=== PATIENT | female | born 1975 | race African-American/Black ===

== ENCOUNTER 2019-06-19 03:16 | Emergency (ER) | payer BC ==
[~2019-06-19] VITALS: Ht 160 cm; Wt 118.1 kg
[2019-06-19] MEDS ORDERED: LISD30CA2 PO (04:04)
[2019-06-19] MEDS ORDERED: acetaminophen 325mg tablet PO ONE (05:25)
[2019-06-19] MEDS ORDERED: normal saline 1000ML IV soln IVB ONE (05:25)
[2019-06-19] MEDS ORDERED: proCHLORperazine 10 MG/2 ml inj IV ONE (05:25)
[2019-06-19] MEDS ORDERED: ketorolac trometh. 30mg/ml inj. IV ONE (05:25)
[2019-06-19] MEDS ORDERED: magnesium 2GM in 50ml NS 50 ML IV ONE (06:30)
[2019-06-19 08:07] VITALS: BP 128/77
== END 2019-06-19 08:08 | disposition home or self-care (01) ==
LOC: ER 03:18
DX: R51 Headache (principal); R11.0 Nausea; Z88.8 Allergy status to other drugs, medicaments and biological substances; Z79.899 Other long term (current) drug therapy
CPT/HCPCS: 96365; 96375; 99283; J0780; J1885; J3475; J7030

== ENCOUNTER 2022-06-16 10:32 | Emergency (ER) | payer BC ==
[~2022-06-16] VITALS: Ht 160 cm; Wt 113.6 kg
[~2022-06-16 10:32] MED LIST: LISD30CA2 PO
[2022-06-16 10:43] VITALS: BP 143/80
[2022-06-16] MEDS ORDERED: fluorescein sod 1mg ophthalmic strip RIGHTEYE ONE (11:10)
[2022-06-16] MEDS ORDERED: proparacaine 0.5% ophthalmic drops 15ml EACHEYE ONE (11:10)
[2022-06-16] MEDS ORDERED: fluorescein sod 1mg ophthalmic strip LEFTEYE ONE (11:10)
[2022-06-16] MEDS ORDERED: ofloxacin 0.33% 5ml ophthalmic drops EACHEYE STA (12:15)
== END 2022-06-16 12:37 | disposition home or self-care (01) ==
LOC: ER 10:33
DX: S05.01XA Injury of conjunctiva and corneal abrasion without foreign body, right eye, initial encounter (principal); H10.211 Acute toxic conjunctivitis, right eye; Z88.6 Allergy status to analgesic agent; Z79.899 Other long term (current) drug therapy; X58.XXXA Exposure to other specified factors, initial encounter; Y93.89 Activity, other specified; Y92.89 Other specified places as the place of occurrence of the external cause; Y99.8 Other external cause status
CPT/HCPCS: 99283